=== PATIENT | female | born 1950 | race Caucasian/White ===

== ENCOUNTER 2025-07-17 14:47 | Emergency (ER) | payer MEDICAID, MEDICARE ==
[~2025-07-17] VITALS: Ht 160 cm; Wt 83.1 kg
[~2025-07-17 14:47] MED LIST: AMLODIPINE BESY10 MG PO; COREG3.125 MG PO; CRESTOR10 MG PO; GLIPIZIDE5 MG PO; HYDRALAZINE HCL25 MG PO; LOSARTAN POTAS100 MG PO; METFORMIN HCL500 MG PO; OMEPRAZOLE40 MG PO; SERTRALINE HCL50 MG PO; ULTRAM 50MG50 MG PO
[2025-07-17] MEDS ORDERED: NEURONTIN300 MG PO (15:11)
[2025-07-17] MEDS ORDERED: FARXIGA10 MG (15:11)
[2025-07-17] MEDS ORDERED: ATORVASTATIN CA20 MG PO (15:11)
[2025-07-17] MEDS: KETOROLAC TROMETHAMINE 60 MG/2 ML VIAL IM ONE (16:40)
[2025-07-17] MEDS: ACETAMINOPHEN 325 MG TAB PO ONE (16:41)
[2025-07-17] MEDS ORDERED: Morphine 4mg INJECTION 4 MG/ML INJ IV ONE (16:45)
[2025-07-17] MEDS ORDERED: CYCLOBENZAPRINE5 MG PO (17:26)
[2025-07-17 17:42] VITALS: PULSE 73; RESP 18; TEMP 98.4; O2SAT 95
== END 2025-07-17 17:42 | disposition home or self-care (01) ==
LOC: FSED 14:52
DX: M54.9 Dorsalgia, unspecified (principal); S29.012A Strain of muscle and tendon of back wall of thorax, initial encounter; I10 Essential (primary) hypertension; E11.40 Type 2 diabetes mellitus with diabetic neuropathy, unspecified; E78.5 Hyperlipidemia, unspecified; K21.9 Gastro-esophageal reflux disease without esophagitis; F32.A Depression, unspecified
CPT/HCPCS: 81003; 96372; 99283; J1885